=== PATIENT | female | born 1975 | race Caucasian/White ===

== ENCOUNTER 2017-03-11 14:46 | Emergency (ER) | payer OTHER ==
[~2017-03-11] VITALS: Ht 149.9 cm; Wt 47.0 kg
[~2017-03-11 14:46] MED LIST: ASPI-391 PO; PSEU30TA64 PO
[2017-03-11 15:03] VITALS: Ht 149.9 cm; Wt 47.0 kg
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
[2017-03-11] MEDS ORDERED: CYCL10TA6 PO (16:19)
[2017-03-11] MEDS ORDERED: IBUPROFEN 600 MG TAB PO STA (16:20)
[2017-03-11 16:38] VITALS: BP 131/82; PULSE 82; TEMP 36.6; O2SAT 99
== END 2017-03-11 16:39 | disposition home or self-care (01) ==
LOC: C.EDB 14:46 → C.EDD 16:39
DX: S16.1XXA Strain of muscle, fascia and tendon at neck level, initial encounter (principal); V49.40XA Driver injured in collision with unspecified motor vehicles in traffic accident, initial encounter; T14.8 Other injury of unspecified body region

== ENCOUNTER → 2017-06-13 | Outpatient (CLI) | payer OTHER ==
[2017-06-13 12:36] LABS: CHOLESTEROL/HDL RATIO 2.7
== END | disposition home or self-care (01) ==
LOC: C.LABBFT 08:12
PROVIDERS: ATTEND Internal Medicine
DX: Z13.220 Encounter for screening for lipoid disorders (principal); Z13.1 Encounter for screening for diabetes mellitus; T14.8 Other injury of unspecified body region; X58.XXXA Exposure to other specified factors, initial encounter